=== PATIENT | female | born 1935 | race Caucasian/White ===

== ENCOUNTER 2019-09-25 15:23 | Inpatient (IN) | payer OTHER, BC ==
[~2019-09-25] VITALS: Ht 162.6 cm; Wt 40.8 kg
[2019-09-25 15:28] VITALS: BP 120/83
[2019-09-25 16:22] LABS: BASOPHILS 0.9 % (0.0-2.0); HEMATOCRIT 35.6 % (37.0-47.0); HEMOGLOBIN 11.8 gm/dL (12.0-15.0); LYMPHOCYTES 16.3 % (24.0-44.0); MCH 29.3 pg (26.0-34.0); MCHC 33.3 g/dL (28.0-37.0); MONOCYTES 5.6 % (1.0-8.0); PLATELET COUNT 352 thou/uL (150-400); POLYS 75.2 % (36.0-66.0); RBC 4.04 mil/uL (4.20-5.00)
[2019-09-25 16:34] LABS: CALCIUM 8.5 mg/dL (8.5-10.1); CREATININE 1.1 mg/dL (0.6-1.0); POTASSIUM 4.4 mmol/L (3.5-5.1)
[2019-09-25 16:41] LABS: TOTAL BILIRUBIN 0.3 mg/dL (<0.1-1.0); TOTAL PROTEIN 7.2 g/dL (6.4-8.2)
[2019-09-25] MEDS ORDERED: LIPITOR40 MG PO (17:25)
[2019-09-25] MEDS ORDERED: NORVASC10 MG PO (17:26)
[2019-09-25] MEDS ORDERED: LEVETIRACETAM250 MG PO (17:26)
[2019-09-25] MEDS ORDERED: ASA81BEC PO (17:26)
[2019-09-25] MEDS ORDERED: MEGESTROL ACETA40 MG PO (17:27)
[2019-09-25] MEDS ORDERED: MELATONIN3 M1 PO (17:27)
[2019-09-25] MEDS ORDERED: TOPROL XL25 MG PO (17:30)
[2019-09-25] MEDS ORDERED: ZANTAC 150MG T150 M1 PO (17:31)
[2019-09-25] MEDS ORDERED: OMEPRAZOLE 20 M20 M1 PO (17:31)
[2019-09-25 17:35] LABS: FOLIC ACID 18.4 ng/mL (8.6-58.9); TSH 1.789 uIU/mL (0.358-3.740)
[2019-09-25 18:32] VITALS: BP 140/64
[2019-09-25 19:40] VITALS: BP 150/87
[2019-09-26 04:00] VITALS: BP 144/73
--- NOTE | 2019-09-26 05:57 | NUR ---
New pt from the ED admitted with pressure wounds. pt is alert but non verbal. Nurse spoke with pt's daughter on the phone who gave verbal consents to treat pt. pt is a q2turn and total care. pt has blisters on bilat heels. heels offloaded with pillows. v/s stable. no s/s of distress. wound dressings changed, pictures taken will cont to monitor
[2019-09-26 08:34] VITALS: BP 137/83
--- NOTE | 2019-09-26 16:10 | NUR ---
PT A&O TO SELF, VSS, NO APPARENT PAIN. PATIENT TURNED OFTEN AND FED. IV PATENT AND FLUIDS RUNNING. PLAN FOR I&D 09/27/19. PATIENT HAS FOUL SMELLING DECUB SCACRAL ULCER. OPTIFOAM ON ALL WOUNDS, BILAT HEELS, LEFT THIGH, AND SACRUM. NO SIGNS OF DISTRESS. WILL CONTINUE TO MONITOR.
[2019-09-26 17:01] VITALS: BP 150/67
[2019-09-26 20:08] VITALS: BP 143/63
--- NOTE | 2019-09-27 04:22 | NUR ---
Pt. rested quietly during the night when checked on during frequent rounds. She has been turned and repositioned. Inna care given for incontinency. Bed alarm is on.
[2019-09-27 08:15] VITALS: BP 152/77
[2019-09-27 08:21] VITALS: BP 152/7
--- NOTE | 2019-09-27 13:54 | HC ---
[facility] [place] [address] CONSULTATION Name: NARAYAN ANDREA Room #: 444-P ADM IN M.R.#: [id number] Admission: 09/25/19 Attend Phys: Anupam Manuel Discharge: Date of : 37 Report #: [id number] THIS REPORT FOR: cc: Bryce Johnson MD, Neal A. MD Jetmore, Allen B. MD ~ CC: Anupam Johnson WOUND CARE CONSULTATION NOTE REASON FOR CONSULTATION: Necrotic sacral decubitus ulcer with left hip pressure sore and bilateral heel pressure sores. HISTORY OF PRESENT ILLNESS: The patient is an 84-year-old woman admitted to [facility] through the Emergency Room with complaint of decubitus ulcers. The patient is noncommunicative and cannot give a history. The patient was admitted to the Emergency Room at [facility] yesterday evening. Wound care was asked to be consulted. General Surgery has also been consulted. There is no clear history as to when and how the patient acquired the pressure ulcers. She is noncommunicative. PHYSICAL EXAMINATION: GENERAL: Shows a thin, emaciated elderly woman with severe protein-calorie malnutrition. She is status post cerebrovascular accident. HEENT: Mucous membranes are moist. She is edentulous. LUNGS: Respirations unlabored. ABDOMEN: Soft. EXTREMITIES: Examination of the extremities shows unstageable pressure injury of the left hip. There is an indurated area of the left lateral hip, measuring approximately 3 cm in diameter. There is superficial ulceration of the skin and desquamation with no obvious deep skin necrosis, but underlying induration. This area superficially appears nonnecrotic. Examination of the patient's back reveals her most significant injury. A large oval 5 cm x 3.5 cm area of full thickness necrosis with necrotic skin and subcutaneous tissue. There is foul smelling drainage in considerable amount from the wound draining onto a pad in the bed. This is clinically a stage 4 pressure ulcer, which will require surgical debridement. Examination of the patient's lower extremities shows a 3 x 3 cm dry black necrotic unstageable pressure ulcer of the patient's right heel. Examination of the contralateral heel shows a small 2 x 2 cm pressure ulcer of the heel, which is black with some blistering. There is 1.5 cm pressure ulcer of the left lateral malleolus and a small unstageable pressure ulcer of the left lateral foot. All these pressure ulcers of bilateral heels, ankle and foot are unstageable. We will dress with Mepilex dressings and foam boots. IMPRESSION: [facility] [address] [place] [address] CONSULTATION Name: NARAYAN ANDREA Room #: 444-P [facility] IN M.R.#: [id number] Admission: 09/25/19 Attend Phys: Anupam Manuel Discharge: Date of : 37 Report #: [id number] 1. Dementia. 2. Status post cerebrovascular accident. 3. Severe protein-calorie malnutrition. 4. Necrotic sacral pressure sore, which optimally would require surgical debridement due to foul smelling draining deep necrosis. 4. Unstageable pressure ulcers of bilateral heels, left ankle and foot. PLAN: We will dress these with foam dressings, foam boots and observe. I have talked with Dr. Hernandez, general surgeon. Surgical debridement of the sacral pressure ulcer would be optimal if consent is obtained and the family desires this level of care. Would observe left hip and foot ulcers. Wound care team will follow. <ELECTRONICALLY SIGNED> By: Hero Flanagan MD 09/27/19 1354 1325 1342 Hero Flanagan MD /nt
--- NOTE | 2019-09-27 15:12 | NUR ---
Assumed patient care at 0715. Vital signs stable. Patient NPO since midnight, as she was scheduled for I&D with Dr Dom Hernandez. Dr Hernandez spoke with daughter on phone. It was decided that it is too risky for this patient to have surgery. Patient placed back on a Soft Diet; intake has been poor. Patient has been non-verbal. She does not appear to be in any distress. Dr Flanagan here, he ordered dakin's for sacral wound. To pack sacral wound with gauze soaked in Dakin's to help with odor, cover with Borderfoam sacral Bandage. Pratha boots obtained through Instrument Technician. External Female Catheter in place. Patient is alert to self only. She is totally dependent upon others for care. Patient is being turned every two hours. Will continue to monitor.
[2019-09-27 19:26] VITALS: BP 180/60
--- NOTE | 2019-09-28 03:38 | NUR ---
ASSESSED AT START OF SHIFT. PT AWAKE WITH ALTERED MENTAL STATUS AT BASELINE. IV INTACT AND FLUIDS INFUISING. PT TURNED FREQUENTLY. DRESSING INTACT. EVENING PILLS GIVEN AND PT TREVON IT WELL. PT A FEEDER. PRAFO BOOTS ON BLE AND PILLOWS FOR REPOSITIONING. WILL CONT TO MONITOR TILL EOS.
[2019-09-28 03:41] VITALS: BP 122/68
[2019-09-28 06:24] LABS: HEMATOCRIT 32.4 % (37.0-47.0); HEMOGLOBIN 10.4 gm/dL (12.0-15.0); MCH 28.5 pg (26.0-34.0); MCHC 32.2 g/dL (28.0-37.0); MCV 88.5 fL (80.0-100.0); RBC 3.66 mil/uL (4.20-5.00); WBC 15.4 thou/uL (4.0-11.0)
[2019-09-28 07:16] VITALS: BP 172/71
--- NOTE | 2019-09-28 09:18 | NUR ---
Pt with vitamin D deficiency: recommend replete with supplementation
--- NOTE | 2019-09-28 13:49 | NUR ---
PT ADMITTED RELATED TO DECUB ULCER. CM REVIEWED CHART AND SPOKE WITH CARE TEAM. CM CALLED AND SPOKE WITH PT'S SON THIS DAY. HE INDICATED THAT PT HAD BEEN LIVING IN A HOUSE WITH HIS SISTER HUNTER. HE INDICATED THERE ARE 6 STEPS TO HOUSE AND 5 STEP TO MAIN LIVING AREA. HE INDICATED THAT THEY HAD BEEN CARRYING PT UPSTAIRS AND WHEN ASSISTING WITH ADLS PEOPLE MANAGER. HE INDICATED PT HADN'T BEEN ABLE TO ASSIST WITH TRANSFERS IN THE LAST 4 WEEKS OR SO.HE STATED THAT PT HAD BEEN GETTING HH SERVICES BUT COULDN'T RECALL PROVIDER. SON ASKED THAT CM CALL HIS SISTER FOR MORE DETAILS. STATED THEY HAD JUST SPOKEN WITH SURGON AND WERE WEIGHING OPTIONS FOR CARES. CM CALLED AND LEFT FOR PT'S DTR AWAITING RESPONSE.
[2019-09-28 15:41] VITALS: BP 153/73
[2019-09-28 20:10] VITALS: BP 141/67
[2019-09-29 03:35] VITALS: BP 138/70
[2019-09-29 08:00] VITALS: BP 123/63
--- NOTE | 2019-09-29 08:18 | NUR ---
RECIEVED CARE OF THIS PATIENT AT 1900. PATIENT ALERT BUT DOES NOT SEEM TO BE ORIENTED EVEN TO SELF. PATIENT DOES NOT COOPERATE WHEN ASK TO DO SOMETHING. R ARM CONTRACTED. HAD IV IN RAC, CHANGED TO R FOREARM. HAS WOUND ON SACRUM, RICARDO HEELS, AND HIP. PROFA BOOTS ON. HAS EXTERNAL FEMALE CATH. SLEPT MOST OF NIGHT. DOES NOT APPEAR TO BE IN PAIN.
--- NOTE | 2019-09-29 14:18 | NUR ---
ASHU REVIEWED PROG NOTES AND DR. BARON HAD INDICATED THAT HE WAS AWAITING RESPONSE FROM FAMILY AGAIN. ASHU CALLED HUNTER PT'S DTR AGAIN JUST TO CLARIFY HOME SITUATION AND SHE INDICATED THAT THEY HAD DECIDED TO ELECT COMFORT CARE. SHE STATED THAT THEY WOULD PREFER THAT PT BE ABLE TO STAY HER BUT UNDERSTANDS IF BED IS NEED SO THEY WOULD BE INTERESTED IN [facility]. DTR INIDCATED THAT THEY WOULDN'T WANT ANY HEROIC MEASURES TAKEN TO [employer] AT THIS TIME AND THAT THEY WOULD BE COMFORTABLE WITH PT BEING NO CODE. CM INFORMED DTR THAT HOSPITALIST MIGHT FOLLOW BACK UP TO GET CLARIFICATION ON CODE STATUS. CM NOTIFIED PHYSICAIN AND HE INDICATED THAT HE WOULD ORDERS SOME CONFORT CARE MEDS. CM SENT REFERRAL TO [facility] FOR REVIEW FOR POSSIBLE ADMISSION. CM TO FOLLOW INDICATED WITH DC PLANNING.
[2019-09-29 15:26] VITALS: BP 105/65
--- NOTE | 2019-09-29 15:57 | NUR ---
[facility] LAY. IT WAS DETERMINED THAT PT WOULD LIKELY QUALIFY AND MIGHT BENEFIT FROM SOME IV CONFORT MEDS. [facility] INDICATED THEY WOULD LIKELY HAVE A BED OPEN TOMORROW. CM COMPLETED [facility] FORM. CM TO TOUCH BASE WITH [facility] AND PROVIDE UPDATES TOMORROW MORNING. CM NOTIFIED PT'S SON.
[2019-09-29 22:03] VITALS: BP 114/60
--- NOTE | 2019-09-30 04:26 | NUR ---
ASSUMED PT CARE AT 1900. PT MADE NO CODE YESTERDAY. SACRAL DRESSING CHANGED AT AT 1900. LARGE BM AT BEGINNING OF SHIFT. HEART RATE BOUNCED FROM 80-160s, PULSE WAS IRREGULAR. CUT IN WORKER MADE AWARE, DUE TO PT BEING NO CODE AND GOING TO HOSPICE TODAY, CUT IN WORKER DECIDED NO FURTHER ACTION WAS NECESSARY. TEMP MANAGED WITH TYLENOL, PT TAKES PILLS CRUSHED IN APPLESAUCE. SLEEPING ALL OF SHIFT, OPENS EYES DURING Q2 TURNS. EXTERNAL CATH IN PLACE. WILL CONTINUE TO MONITOR.
[2019-09-30 07:13] VITALS: BP 146/70
[2019-09-30 10:40] VITALS: BP 146/70
--- NOTE | 2019-09-30 11:10 | NUR ---
PT CARE ASSUMED AT 0700. PT HAS ALTERED MENTAL STATUS AND REACTS TO HER NAME BUT IS NONVERBAL. Q2 TURNS. IV PATENT WITH NO REDENSS OR EDEMA, SALINE LOCKED. SACRAL WOUND CHANGED WITH WOUND CARE TEAM AND DC PICTURES TAKEN. PT POCKETED HER BREAKFAST AND IS A ASPIRATION CANDIDATE. MORNING PO MEDS HELD DUE TO POSSIBLE ASPIRATION. EXTERANAL CATH IN PLACE. PARFO BOOTS IN PLACE. PT IS TO DISCHARGE TO HOSPICE HOUSE TODAY. FALL PROTOCOL IN PLACE. CALL LIGHT IN REACH.
[2019-09-30] MEDS ORDERED: LORAZEPAM 22 MG/1 ML IV PUSH (12:40)
[2019-09-30] MEDS ORDERED: MIRALAX17 GM PO (12:40)
[2019-09-30] MEDS ORDERED: MORPHINE SU4 MG/1 M1 IV PUSH (12:40)
[2019-09-30] MEDS ORDERED: ACETAMINOPHEN325 M1 PO (12:40)
--- NOTE | 2019-09-30 13:00 | NUR ---
HOSPICE HOUSE CAN ACCEPT PT THIS DAY. CM FAXED CLINICAL UPDATE AND INTAKE SPOKE WITH PT'S NURSE THIS AM. CM ARRANGED [facility] TO PICK PT UP AT 1500. NO CHART COPY NEEDED. CM CALLED AND LEFT VM WITH PT'S DTR INDICATING THE ABOVE AND SPOKE WITH PT'S SON SHAN THEY ARE AWARE AND AGREEABLE. NURSE HAD NUMBER FOR REPORT . NO OTHER CM INTERVENTION INDICATED. CASE CLOSED.
--- NOTE | 2019-10-02 12:22 | EKG ---
[facility] [place] [address] ELECTROCARDIOGRAM REPORT Name: NARAYAN ANDREA Room #: 444- DIS IN M.R.#: [id number] Admission: 09/25/19 Attend Phys: Foster Cloud MD Discharge: 09/30/19 Date of : 37 Report #: [id number] THIS REPORT FOR: cc: Bryce Johnson MD, Neal A. MD Lundgren,Syed Bejarano MD [facility] ~ THIS REPORT FOR: //name// [facility] ED Test Date: 2019-09-25 Test Time: 15:35:26 Pat Name: NARAYAN ANDREA Department: Room: 444 Gender: F Insole Bottom Filler: jaylen : 1935 Requested By: Sylvester Tristan Order Number: [id number] MD: Syed Flor Measurements Intervals [place] Rate: 93 P: 40 IN: 111 QRS: 59 QRSD: 64 T: 254 QT: 328 QTc: 408 Interpretive Statements Sinus tachycardia Atrial premature complexes Borderline short IN interval Probable LVH with secondary repol abnrm Artifact in lead(s) II,III,V1,V2 No previous ECG available for comparison Electronically Signed On 09-28-2019 9:10:05 CDT by Syed Flor [email or web address] <ELECTRONICALLY SIGNED> By: Syed Flor MD, FAC 09/28/19 0910 1535 1535 Syed Flor MD, [facility] /EPI
== END 2019-09-30 14:40 | disposition hospice, home (50) | DRG 871 ==
LOC: ER 15:23 → 4S 16:54 → EROBS 16:54 → 4S 19:30
PROVIDERS: Hospitalist; Physician Assistant; ADMIT Internal Medicine
DX: A41.9 Sepsis, unspecified organism (principal); L89.154 Pressure ulcer of sacral region, stage 4; E43 Unspecified severe protein-calorie malnutrition; G92 Toxic encephalopathy; Z68.1 Body mass index [BMI] 19.9 or less, adult; L89.609 Pressure ulcer of unspecified heel, unspecified stage; R65.20 Severe sepsis without septic shock; F03.90 Unspecified dementia, unspecified severity, without behavioral disturbance, psychotic disturbance, mood disturbance, and anxiety; L89.520 Pressure ulcer of left ankle, unstageable; L89.890 Pressure ulcer of other site, unstageable; L89.510 Pressure ulcer of right ankle, unstageable; I10 Essential (primary) hypertension; E55.9 Vitamin D deficiency, unspecified; E78.5 Hyperlipidemia, unspecified; Z79.2 Long term (current) use of antibiotics; Z79.82 Long term (current) use of aspirin; Z79.899 Other long term (current) drug therapy; Z86.73 Personal history of transient ischemic attack (TIA), and cerebral infarction without residual deficits
CPT/HCPCS: 10195